=== PATIENT | female | born 1995 | race Caucasian/White ===

== ENCOUNTER 2020-03-27 07:05 | Inpatient (IN) | payer MEDICAID, SELFPAY ==
[2020-03-27] VITALS (38 sets, daily range): BP systolic 0–153; BP diastolic 0–102; PULSE 59–122; RESP 16–20; TEMP 36.3–36.8; O2SAT 97–100; BMI 29.0
--- NOTE | 2020-03-27 07:19 | PM.OBGYHP ---
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 At about 4:00 in the morning she began having contractions and also had some leaking. She went to the bathroom and when she came back there was a puddle on the floor. As result she came in to be evaluated. Here on the floor she was checked was and was found to be nitrazine positive with a white vaginal vault. Her cervix was found to be about centimeter dilated and was thick and high. I contacted the office and her Covid status which was checked earlier this week was found to be negative. Present Details : 4 Para: 3 Review of Systems General: Reports: 10 or more systems reviewed and unremarkable except in HPI and below Const: Reports: fatigue; Denies: fever(s) Eyes: Denies: change in vision Card: Denies: chest pain GI: Reports: heartburn Musc: Reports: back pain William/Lymph: Denies: easy bruising Medications/Allergies Home Medications Medication Instructions Recorded Confirmed Last Taken Type [id number] fumarate-FA tab PO 03/27/20 03/26/20 12:00 History [] ferrous sulfate [Iron (ferrous 325 mg PO DAILY 03/27/20 03/27/20 03/26/20 12:00 History sulfate)] Allergies Allergy/AdvReac Type Severity Reaction Status Date / Time No Known Allergies Allergy Verified 03/27/20 06:58 PFSH 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 PFSH: Family History (Updated 03/27/20 @ 07:26 by Scar Barnett MD) Brother Lung disease Asthma Seizure disorder Social History (Updated 03/27/20 @ 07:25 by Scar Barnett MD) Substance/Drug Use: former Date of last use: Had multiple positive marijuana test during Care TRANG Calculator Estimated Delivery Date Method Current WG Current Estimate 04/05/20 Manual 38w 5d Vitals/I&O/Wt Last Vital Signs Pulse 122 H 03/27/20 07:09 BP 144/90 03/27/20 07:09 Weight last 48 hrs Weight 159 lb Physical Exam Const: COMMON NORMALS: patient oriented x3 and alert HENMT: COMMON NORMALS: moist oral mucous membranes HEAD & SCALP: normal to inspection Chest: COMMONS NORMALS: normal inspection of the chest Resp: COMMON NORMALS: clear to auscultation bilaterally AUSCULTATION: clear to auscultation bilaterally Cardio: COMMON NORMALS: regular rate and regular rhythm RATE: regular rate RHYTHM: regular rhythm GI: INSPECTION: Yes normal to inspection and Yes other (Gravid) : OTHER: Per nurse copious fluid in vaginal vault. nitrazine positive. Extremity: COMMON NORMALS: normal to inspection GENERAL: Yes edema (Trace) Neuro: COMMON NORMALS: patient oriented x3, moves all extremities and no sensory deficits noted SENSORIUM/ORIENTATION: Yes alert Psych: COMMON NORMALS: mental status grossly normal Skin: COMMON NORMALS: no rashes or lesions noted GENERAL SKIN EXAM: no rashes or lesions noted A&P Assessment and plan (1) History of : We are going to proceed with a repeat section at 930. We discussed the risks of bleeding, infection, and damage intra-abdominal organs. Status: Acute (2) 38 weeks gestation of : Status: Acute (3) Spontaneous rupture of membranes: Status: Acute (4) History of marijuana use: We will check a drug screen on the patient. DFS will be consulted. The patient is aware. Status: Acute Attestations Medical Necessity Statement*: I anticipate routine and post care. Coding Level of Care Code Acute Blood And Plasma Laboratory Assistant for Genny Fwd Diagnoses History of Z98.891 38 weeks gestation of Z3A.38 Spontaneous rupture of membranes History of marijuana use Z87.898
[2020-03-27 07:36] LABS: Amphetamines Screen Urine Negative (Negative); Barbiturates Screen Urine Negative (Negative); Benzodiazepines Screen Urine Negative (Negative); Cocaine Screen Urine Negative (Negative); Opiate Screen Urine Negative (Negative); PCP Screen Urine Negative (Negative); THC Screen Urine Negative (Negative)
[2020-03-27 07:39] LABS: Basophils % 0.3 %; Eosinophils # 0.1 10^3/uL (0.0-0.8); Eosinophils % 0.7 %; Hematocrit 28.8 % (37.0-47.0); Hemoglobin 8.8 g/dL (11.5-15.3); Lymphocytes # 1.6 10^3/uL (0.8-4.8); Lymphocytes % 14.6 %; Mean Corpuscular HGB Conc 30.6 g/dL (30.0-36.0); Mean Corpuscular Hemoglobin 24.2 pg (28.0-34.0); Mean Corpuscular Volume 79.1 fL (81-99); Mean Platelet Volume 11.4 fL (7.4-10.4); Monocytes % 9.3 %; Neutrophils # 7.81 10^3/uL (1.8-7.7); Neutrophils % 71.1 %; Nucleated Red Blood Cells % 0.4 %; Platelet Count 149 10^3/cmm (130-400); Red Blood Count 3.64 10^6/uL (4.1-5.3); Red Cell Distribution Width 15.9 % (12.1-15.1)
[2020-03-27] MEDS: lactated ringers 1,000 ML 999 ML IV (07:55)
[2020-03-27] MEDS: famotidine 20 mg/2 mL INJ IVP (07:57)
[2020-03-27] MEDS: lactated ringers 1,000 ML 125 ML IV (08:33)
--- NOTE | 2020-03-27 09:19 | P.ANESASSM_ITS ---
Pre-Anesthetic Assessment Pre-Anesthetic Assessment: Height/Weight: Height 1.57 m Weight 72.121 kg Temp Pulse Resp BP 97.3 F L 84 20 H 136/84 03/27/20 07:00 03/27/20 09:09 03/27/20 07:00 03/27/20 09:09 Preop Diagnosis: previous c section Proposed Procedure: c section Was Beta Ramses taken within 24 hours: N/A Last intake: Intake Last Liquid Date 03/26/20 Last Liquid Time 23:00 Last Solid Date 03/26/20 Last Solid Time 21:00 Social: Social History: No alcohol and No tobacco Exam: Pre-Anes Outpt Exam: alert, oriented x 3, clear to auscultation bilaterally and regular rate & rhythm Airway: Submandibular: WNL Cervical ROM: WNL MP: 2 Dentition: Full History/ROS: No significant history except as noted and No significant complaints Pulmonary: Pulmonary: None reported CV/HEM: CV/HEM: None reported : : None reported Hepatic: Hepatic: None reported GI: GI: GERD Metabolic: Metabolic: None reported Musc/skel: Musc/skel: None reported Neuropsych: Neuropsych: None reported Anesthetic Plan: ASA status: 2 Anesthesia: Regional (specify below) (SAB) Risk of > 500 ml blood loss (7ml/kg in children): Yes, adequate IV access and fluids planned Meds/Allergies Current Medications: Current Medications Generic Name Dose Route Start Last Admin Trade Name Freq PRN Reason Stop Dose Admin Lactated Ringer's 1,000 mls @ 125 m ls/hr 03/27/20 07:15 03/27/20 08:33 Lactated Ringers IV 125 mls/hr .Q8H HARSHAL Administration Lactated Ringer's 1,000 mls @ 999 m ls/hr 03/27/20 07:01 03/27/20 07:55 Lactated Ringers IV 999 mls/hr .Q1H1M PRN Administration Per L&D Rescitati on Protocol PFS Anesthesia PFSH: Family History (Updated 03/27/20 @ 07:27 by Scar Barnett MD) Brother Lung disease Asthma Seizure disorder Social History (Updated 03/27/20 @ 07:25 by Scar Barnett MD) Substance/Drug Use: former Date of last use: Had multiple positive marijuana test during Female Reproductive History: : 4 Data Anesthesia CBC & Chem 7: 03/27/20 07:14 Other Labs: Laboratory Results - last 48 hr 03/27/20 03/27/20 06:30 07:14 WBC 11.0 H RBC 3.64 L Hgb 8.8 L Hct 28.8 L MCV 79.1 L MCH 24.2 L MCHC 30.6 RDW 15.9 H Plt Count 149 MPV 11.4 H Neut % (Auto) 71.1 Lymph % (Auto) 14.6 [place] % (Auto) 9.3 Eos % (Auto) 0.7 Baso % (Auto) 0.3 Neut # (Auto) 7.81 H Lymph # (Auto) 1.6 [place] # (Auto) 1.0 H Eos # (Auto) 0.1 Baso # (Auto) 0.0 Nucleated RBC % (auto) 0.4 Nucleated RBCs # 0.0 Urine Opiates Screen Negative Ur Barbiturates Screen Negative Ur Phencyclidine Scrn Negative Ur Amphetamines Screen Negative U Benzodiazepines Scrn Negative Urine Cocaine Screen Negative U Marijuana (THC) Screen Negative Cardiac Studies: No Data to Display
--- NOTE | 2020-03-27 11:00 | P.OP_ITS ---
Operative Report Date of procedure: March 27, 2020 Pre-op Diagnosis: previous c section, 38 weeks gestation, spontaneous rupture membranes Post-op diagnosis: same Procedure Done: Repeat lower transverse section Specimens removed/disposition: 1. Female infant with a weight of 6 pounds 13 ounces and and Apgars of 9, 10 Pathology: none sent Surgeon: Scar Barnett Anesthesia: Other (Spinal) Estimated blood loss (mL): 600 Condition: stable Disposition: floor (OB) Brief History: See history and physical Procedure: The patient was brought back to the operating room where she was prepped and draped in usual sterile fashion. Anesthesia was found to be adequate. A lower transverse skin incision was then made with a #10 blade. I then dissected down to the underlying subcutaneous tissue until arriving at the prerectal fascia. The fascia was then nicked with the scalpel bilaterally. The fascial incisions were then carried laterally with Butt scissors. Attention was then turned to the superior aspect of the incision which was grasped with kochers and tented up away from the underlying rectus abdominis muscles. The muscles were then dissected away from the fascia manually, and later with Butt scissors. Attention was then turned to the inferior aspect of the incision, and the fascia was dissected away from the underlying muscle in similar fashion. The rectus abdominis muscles were then spread manually. The peritoneum was entered manually. Excellent visualization of the uterus was noted. A lower transverse uterine incision was then made with a #10 blade. Upon arriving at the intrauterine cavity, the uterine incision was then extended manually. The was noted to be in vertex position. The baby was delivered without difficulty. After delivery of the head, the mouth and nose were suctioned at the site of the incision. There was no meconium. There was no nuchal cord. The remainder of the body was then delivered and placed on the abdomen. The cord was cut and clamped. The baby was then handed to the waiting nurse. The placenta was removed intact. The uterus was externalized. The intrauterine cavity was cleansed of any remaining debris. The uterine incision was reapproximated in 2 layers. the first layer was performed with 0 Vicryl in a running locked stitch. The second layer was an im bricating stitch also using 0 Vicryl. A single [id number] stitch was used to stop any remaining bleeders. The uterus was replaced into the abdomen. The peritoneum was then irrigated with warm saline. I reexamined the uterine incision and found it to be hemostatic. The rectus abdominis muscles were then reapproximated using 0 Vicryl in a running stitch. The fascia was then reapproximated using 0 Vicryl in running stitch. The skin was reapproximated using 4-0 Vicryl in a running subcutaneous stitch. Benzoin and Steri-Strips were placed. A sterile dressing was placed. All counts were correct x2. Both the mother and baby were in stable condition. Associated Problem List Diagnoses (1) History of : (2) 38 weeks gestation of : (3) Spontaneous rupture of membranes:
[2020-03-27] MEDS: dextrose 5%-lactated ringers 1,000 ML 125 ML IV ×2 (13:18→21:50)
[2020-03-27] MEDS: ketorolac 30 mg/mL INJ IVP (18:38)
[2020-03-27] MEDS: docusate sodium 100 mg Capsule PO (18:38)
[2020-03-27 19:57] LABS: Hematocrit 24.1 % (37.0-47.0); Hemoglobin 7.5 g/dL (11.5-15.3); Mean Corpuscular HGB Conc 31.1 g/dL (30.0-36.0); Mean Corpuscular Hemoglobin 24.5 pg (28.0-34.0); Mean Corpuscular Volume 78.8 fL (81-99); Mean Platelet Volume 11.7 fL (7.4-10.4); Platelet Count 143 10^3/cmm (130-400); Red Blood Count 3.06 10^6/uL (4.1-5.3); White Blood Count 16.5 10^3/uL (4.0-10.0)
[2020-03-28 01:20] VITALS: BP 120/77; PULSE 84; RESP 16; TEMP 36.8; O2SAT 99
[2020-03-28] MEDS: ketorolac 30 mg/mL INJ IVP (01:20)
[2020-03-28 05:15] VITALS: BP 131/87; PULSE 78; RESP 16; TEMP 36.6; O2SAT 100
[2020-03-28 05:44] LABS: Hematocrit 22.2 % (37.0-47.0); Hemoglobin 6.8 g/dL (11.5-15.3); Mean Corpuscular HGB Conc 30.6 g/dL (30.0-36.0); Mean Corpuscular Hemoglobin 24.7 pg (28.0-34.0); Mean Corpuscular Volume 80.7 fL (81-99); Mean Platelet Volume 11.9 fL (7.4-10.4); Platelet Count 122 10^3/cmm (130-400); Red Blood Count 2.75 10^6/uL (4.1-5.3); Red Cell Distribution Width 15.9 % (12.1-15.1); White Blood Count 12.6 10^3/uL (4.0-10.0)
[2020-03-28 06:54] LABS: Absolute Segmented Neutrophil 9.8 10/cmm (1.6-7.1); Anisocytosis 1+; Band Neutrophils Absolute 0.1 10^3/cmm (0.0-1.2); Blastocytes 0 % (0-0); Eosinophils 0 %; Lymphocytes 18 %; Monocytes Absolute 0.4 10^3/cmm (0.1-0.6); Platelet Estimate Decreased (Normal); Segmented Neutrophils 78 %; Total Cells Counted 100 (0-100)
--- NOTE | 2020-03-28 07:45 | PM.OBGYDC ---
Discharge Providers MANAGER AREA Date of Admission: 03/27/20 07:05 Date of Discharge: 03/28/20 Attending Provider at Admission: Scar Barnett MD Attending Provider at Discharge: Scar Barnett MD Diagnoses at Discharge Discharge Diagnosis (1) History of : Status: Acute (2) 38 weeks gestation of : Status: Acute (3) Spontaneous rupture of membranes: Status: Acute Reason for Visit Reason for Visit: possible ROM and contractions Hospital Course Hospital Course: The patient arrived to the hospital with spontaneous rupture of membranes. Because of her history of a previous , we proceeded with a repeat section. The was unremarkable. Her course was also unremarkable. Her bleeding was a little better than normal. Her pain is been well controlled. Her urine output has been excellent. Her hemoglobin when she came to the hospital was 8.8. It is dropped to 6.8. She has passed gas and tolerated regular diet. There have been no concerns. Information Peripartum Data: Delivery Method: Section Physical Exam Narrative: EXAM NARRATIVE: She is in no acute distress Lungs are clear auscultation bilaterally Her heart has a regular rate and rhythm Her fundus is below the umbilicus and firm Her dressing is clean, dry and intact Her extremities have trace edema Urinary Catheter Management^: Dempsey: Cath Placed During This Visit: yes, but has since been removed by the nurse Reason for Continuing Indwelling Catheter: Decision to DC Catheter Urinary Catheter Date of Insertion: 03/27/20 Urinary Catheter Time of Insertion: 10:05 Date Urinary Catheter Removed: 03/28/20 Time Urinary Catheter Discontinued: 05:00 Discharge Data Data Completed and Pending: Labs from last 24 hours 03/28/20 03/27/20 05:15 19:43 WBC 12.6 H 16.5 H RBC 2.75 L 3.06 L Hgb 6.8 L 7.5 L Hct 22.2 L 24.1 L MCV 80.7 L 78.8 L MCH 24.7 L 24.5 L MCHC 30.6 31.1 RDW 15.9 H 16.0 H Plt Count 122 L 143 MPV 11.9 H 11.7 H Total Counted 100 Atypical Lymphs % 0.0 Absolute Neutrophi ls 10.0 H Segmented Neutroph ils 78 Abs Segm Neuts (Ma n) 9.8 H Band Neutrophils 1.0 Abs Band Neuts (Ma n) 0.1 Lymphocytes (Manua l) 18 Monocytes (Manual) 3.0 Absolute Monocytes 0.4 Eosinophils (Manua l) 0 Absolute Eosinophi ls 0.0 Basophils (Manual) 0.0 Absolute Basophils 0.0 Metamyelocytes 0.0 Myelocytes 0.0 Promyelocytes 0.0 Nucleated RBCs 1.0 Blast Cells 0 Platelet Estimate Decreased L Anisocytosis 1+ H Vitals: Last Vital Signs Temp 97.8 F 03/28/20 05:15 Pulse 78 03/28/20 05:15 Resp 16 03/28/20 05:15 BP 131/87 03/28/20 05:15 Pulse Ox 100 03/28/20 05:15 Discharge Plan Discharge Patient Disposition: Home Condition: Stable Prescriptions: New ibuprofen 800 mg Tablet 800 mg PO TID Qty: 45 RF: 0 hydrocodone-acetaminophen 5-325 mg Tablet 1 tab PO Q6H PRN (Reason: Moderate To Severe Pain) Qty: 20 RF: 0 ferrous sulfate 325 mg (65 mg iron) Tablet,Delayed Release (Dr/Ec) 325 mg PO BID Qty: 60 RF: 3 Continued 28-800 mg-mcg Tablet PO RF: 0 Discontinued ferrous sulfate [Iron (ferrous sulfate)] 325 mg (65 mg iron) Tablet 325 mg PO DAILY RF: 0 Discharge Orders: Discharge Order (Routine); Ordered 03/28/20 Ordered By: Scar Barnett Referrals: Scar Barnett MD [Family Provider] - 6 Weeks ( she already has an appointment next week she will keep.) Discharge Diet: Usual diet Discharge Activity: Limit activity as instructed Patient Instructions: Bleeding (DC), OB - [place], OB Discharge Report, OB Anesthesia Instructions, OB Food/Drug Interaction Guide, OB Home Care, OB Proud Parent Packet Discharge Attestations MANAGER AREA Time Spent in Discharge Care*: less than 30 min Coding Level of Care Code Acute Brand Development Manager for Chg Fwd Diagnoses History of Z98.891 38 weeks gestation of Z3A.38 Spontaneous rupture of membranes
[2020-03-28] MEDS: docusate sodium 100 mg Capsule PO (08:44)
[2020-03-28] MEDS: ferrous sulfate EC 325 mg Tablet PO (08:44)
[2020-03-28] MEDS: prenatal vitamin Capsule 1 CAP PO (08:44)
[2020-03-28] MEDS: ibuprofen 800 mg tablet PO (09:30)
--- NOTE | 2020-03-28 09:57 | P.ANESPOST_ITS ---
Inpatient post-anesthesia follow up: Airway intact: Yes Vital signs: Temperature 97.8 F Pulse Rate 78 Respiratory Rate 16 Blood Pressure 131/87 Pulse Oximetry 100 Oxygen Delivery Me thod Room Air Oxygen Flow Rate Fraction of Inspir ed Oxygen Hydration adequate: Yes Pain level: 2 Mental status: Baseline Additio nal Comments: No signs of infection at neuraxial site, no numbness/weakness in lower extremities, no headaches, urinating without moreau
[2020-03-28 10:28] VITALS: BP 121/81; PULSE 87; RESP 16; TEMP 36.8
[2020-03-28] MEDS: simethicone 80 mg Chew PO (12:42)
[2020-03-28] MEDS: HYDROcodone-acetaminophen 5-325 mg Tablet PO (12:42)
[2020-03-28 13:43] VITALS: BP 123/80; PULSE 99; RESP 18; TEMP 36.8
== END 2020-03-28 14:12 | disposition home or self-care (01) | DRG 787 ==
LOC: OBGYN 08:21 → OPOB 10:08 → OBGYN 10:08
PROVIDERS: Admitting Provider Family Medicine; Family Provider Family Medicine; Visit Provider Family Medicine
PROC: 10D00Z1 Extraction of Products of Conception, Low, Open Approach (ICD-10-PCS; CPT 59514; principal; 2020-03-27 10:00)
DX: O34.211 Maternal care for low transverse scar from previous cesarean delivery (principal); O99.324 Drug use complicating childbirth; Z3A.38 38 weeks gestation of pregnancy; Z37.0 Single live birth; F12.90 Cannabis use, unspecified, uncomplicated
CPT/HCPCS: 12345; 36415; 51702; 59025; 59409; 80306; 83986; 85007; 85025; 85027; 90471; 90686; 96375; 99211; J0690; J1885; J2274; J2405; J3010; J3490

== ENCOUNTER 2022-09-28 13:42 | Emergency (ER) | payer MEDICAID, SELFPAY ==
[2022-09-28 13:49] VITALS: BP 107/78; PULSE 72; RESP 16; TEMP 36.8; O2SAT 99; BMI 22.6
[2022-09-28 14:30] LABS: Basophils % 0.1 %; Eosinophils % 0.1 %; Hematocrit 47.7 % (37.0-47.0); Hemoglobin 15.9 g/dL (11.5-15.3); Lymphocytes # 1.7 10^3/uL (0.8-4.8); Mean Corpuscular HGB Conc 33.3 g/dL (30.0-36.0); Mean Platelet Volume 10.4 fL (7.4-10.4); Monocytes # 0.7 10^3/uL (0.2-0.9); Monocytes % 5.6 %; Neutrophils # 9.56 10^3/uL (1.8-7.7); Neutrophils % 79.9 %; Nucleated Red Blood Cells % 0 %; Platelet Count 272 10^3/cmm (130-400); Red Cell Distribution Width 12.3 % (12.1-15.1)
[2022-09-28 14:49] LABS: HCG, Serum Qual Negative (Negative)
[2022-09-28 14:54] LABS: Alanine Aminotransferase 13 U/L (0-33); Albumin Level 5.4 g/dL (3.5-5.2); Alkaline Phosphatase 80 U/L (35-105); Anion Gap 19.9 (5-19); Aspartate Amino Transferase 15 U/L (0-32); Blood Urea Nitrogen 26 mg/dL (6-20); Calcium 10.4 mg/dL (8.5-10.5); Carbon Dioxide 26 mmol/L (22-29); Chloride 97 mmol/L (98-107); Globulin 3.4 g/dL (1.3-4.6); Glucose 120 mg/dL (65-115); Lipase 26 U/L (13-60); Osmolality Calculated 294 mOsm/kg (285-295); Potassium 3.9 mmol/L (3.5-5.1); Sodium 139 mmol/L (136-145); Total Bilirubin 0.4 mg/dL (0.15-1.2); Total Protein 8.8 g/dL (6.6-8.7)
== END 2022-09-28 15:09 | disposition left against medical advice (07) ==
PROVIDERS: Emergency Medicine; Emergency Provider Family Medicine; PCP Nurse Practitioner
DX: Z53.21 Procedure and treatment not carried out due to patient leaving prior to being seen by health care provider (principal)
CPT/HCPCS: 36415; 80053; 83690; 84703; 85025; 99283

== ENCOUNTER 2022-09-29 11:07 | Emergency (ER) | payer MEDICAID, SELFPAY ==
[2022-09-29] VITALS (28 sets, daily range): BP systolic 122; BP diastolic 85; PULSE 56; TEMP 36.5; O2SAT 96–100; BMI 22.6
--- NOTE | 2022-09-29 | CTR_ITS ---
[facility] Final Radiology Report Call: [phone] assistance Online chat: [email or web address] Name: ADALBERTO MCGOWAN Age: 26Years F Date: 09/29/2022 SSN: -- : [id number] Study: CT ABDOMEN/PELVIS W Requesting Physician: JACKIE PAPPAS Images: 194 Add?l Studies: Provided Clinical History: abdominal pain Page 1 of 2 PROCEDURE INFORMATION: Exam: CT Abdomen And Pelvis With Contrast Exam date and time: 09/29/2022 2:27 PM Age: 26 years old Clinical indication: Abdominal pain; Generalized TECHNIQUE: Imaging protocol: Computed tomography of the abdomen and pelvis with contrast. Radiation optimization: All CT scans at this facility use at least one of these dose optimization techniques: automated exposure control; mA and/or kV adjustment per patient size (includes targeted exams where dose is matched to clinical indication); or iterative reconstruction. Contrast material: OMNI 350; Contrast volume: 100 ml; Contrast route: INTRAVENOUS (IV); REPORTING DATA: Count of CT and Cardiac NM exams in prior 12 months: This patient has received 0 known CTs and 0 known cardiac nuclear medicine studies in the 12 months prior to the current study. COMPARISON: US OB >= 14 weeks fetus [id number] 11/12/2019 1:17 PM RADIATION DOSE METRICS: Total DLP (mGy-cm): 332 FINDINGS: Lungs: Lung bases are clear. Liver: The liver is normal. Gallbladder and bile ducts: The gallbladder is normal. There is no biliary dilation. Pancreas: The pancreas is unremarkable. Spleen: The spleen is moderately enlarged. Adrenal glands: The adrenal glands are unremarkable Kidneys and ureters: The kidneys are unremarkable. No hydronephrosis or stones. No ureteral dilation. Stomach and bowel: The stomach is unremarkable. The small bowel is nondilated. Colon is diffusely decompressed. Appendix: The appendix is normal. Intraperitoneal space: There is no free air or significant intraperitoneal free fluid. Vasculature: The aorta is unremarkable. There is no aneurysm. The portal, splenic and superior mesenteric veins are patent. Lymph nodes: There is no lymphadenopathy in the retroperitoneum, mesentery, pelvis or inguinal regions. Urinary bladder: The urinary bladder is unremarkable. Reproductive: The uterus is unremarkable. There is no adnexal mass or large cyst. Bones/joints: Bones are unremarkable. Soft tissues: The abdominal wall is intact. IMPRESSION: No acute findings. Thank you for allowing us to participate in the care of your patient. Dictated and Authenticated by: Tam Latham MD 09/29/2022 2:49 PM Central Time ([place] & [place]) [facility]
--- NOTE | 2022-09-29 12:51 | W.ED.NAVMDI ---
HPI - Nausea/Vomiting/Diarrhea General: Chief complaint: Nausea/Vomiting/Diarrhea Stated complaint: N/V x5 days Time Seen by Provider: 09/29/22 12:38 History of Present Illness: 26-year-old female presents emergency department chief complaint of nausea vomiting diarrhea and generalized abdominal pain has been ongoing for last 5 days. Patient reports before her sickness she ate [employer] reports the food tasted well patient reports her sick kids were sick with the same symptoms will last 1 day however her symptoms have been persisted patient does not recall any recent fevers or chills reports no other history of any other abdominal surgeries besides multiple C-sections. Patient reports generalized abdominal cramping pain. Associated nausea: Yes Associated symtoms: Reports fatigue, malaise and nausea; Denies anxiety, change in vision, chest pain, headache(s) or palpitations Review of Systems General: Reports: 10 or more systems reviewed and unremarkable except in HPI and below Const: Reports: fatigue and malaise; Denies: fever(s) or chills Eyes: Denies: change in vision or blurry vision Card: Denies: chest pain or palpitations Resp: Denies: dyspnea or productive cough GI: Reports: abdominal pain, nausea, vomiting and diarrhea : Denies: flank pain Musc: Denies: extremity pain or extremity swelling Skin/Breast: Denies: rash or pruritus Neuro: Denies: headache(s) Psych: Denies: anxiety or depression William/Lymph: Denies: easy bleeding All/Imm: Denies: urticaria, throat swelling or facial swelling PFSH ED PFSH: Family History Brother Lung disease Asthma Seizure disorder Social History Substance/Drug Use: former Date of last use: Had multiple positive marijuana test during Physical Exam Narrative: EXAM NARRATIVE: Patient appears to have a flat affect appears to be moderately dehydrated on exam Const: COMMON NORMALS: no acute distress, patient oriented x3 and healthy appearing HENMT: COMMON NORMALS: normocephalic and atraumatic HEAD & SCALP: normocephalic and atraumatic Eye: COMMON NORMALS: Equal, round and reactive pupils present and EOMs intact bilaterally PUPIL: Yes Equal, round and reactive pupils present Neck/C-Spine: COMMON NORMALS: full ROM, supple and no JVD Lymph: LYMPHATIC: no lymphadenopathy noted Chest: COMMONS NORMALS: normal inspection of the chest and normal palpation of entire chest wall Resp: COMMON NORMALS: normal respiratory effort, No retractions and clear to auscultation bilaterally EFFORT & INSPECTION: Yes able to speak in complete sentences and Yes symmetric chest movement AUSCULTATION: clear to auscultation bilaterally Cardio: COMMON NORMALS: no JVD, regular rate and regular rhythm RATE: regular rate RHYTHM: regular rhythm GI: OTHER: Generalized abdominal discomfort noted with tenderness appreciated mild guarding noted over the suprapubic region otherwise soft nontender hypoactive bowel sounds noted x4 quadrants : COMMON NORMALS: Yes no CVA tenderness BLADDER/KIDNEY EXAM: Yes no CVA tenderness Back/Pelvis: COMMON NORMALS: no CVA tenderness Extremity: COMMON NORMALS: normal to inspection and full ROM Neuro: COMMON NORMALS: patient oriented x3, CN's II-XII intact bilaterally, moves all extremities and no focal motor deficits Psych: COMMON NORMALS: mental status grossly normal, Normal thought process present, cooperative and normal affect THOUGHT PROCESS: Normal thought process present Skin: COMMON NORMALS: no rashes or lesions noted GENERAL SKIN EXAM: no rashes or lesions noted Course Vital Signs: Vital signs: Vital Signs Temperature 97.7 F 09/29/22 12:03 Pulse Rate 56 L 09/29/22 12:03 Blood Pressure 122/85 09/29/22 12:03 Pulse Oximetry 100 09/29/22 12:03 Oxygen Delivery Me thod Room Air 09/29/22 12:03 MDM - Nausea/Vomiting/Diarrhea Medical Decision Making Due to the patient's symptoms and condition IV established basic lab work imaging will be obtained IV fluids provided for hydration antiemetics and stomach medication will be provided we will continue to follow Discharge Plan Discharge Condition: Stable Prescriptions: No Action amoxicillin 875 mg tablet 875 mg PO BID Qty: 20 0RF ibuprofen 800 mg tablet 800 mg PO TID PRN (Reason: pain) Qty: 42 0RF 28-800 mg-mcg Tablet PO ibuprofen 800 mg Tablet 800 mg PO TID Qty: 45 0RF hydrocodone-acetaminophen 5-325 mg Tablet 1 tab PO Q6H PRN (Reason: Moderate To Severe Pain) Qty: 20 0RF ferrous sulfate 325 mg (65 mg iron) Tablet,Delayed Release (Dr/Ec) 325 mg PO BID Qty: 60 3RF Referrals: Tyson Henry, COOKIE BREAKER-C [Primary Care Provider] - Coding Level of Care Code ED Supervisor Personnel Clerks for Genny Whiting
[2022-09-29 13:24] LABS: Basophils % 0.4 %; Eosinophils % 0.2 %; Hematocrit 44.7 % (37.0-47.0); Hemoglobin 15.3 g/dL (11.5-15.3); Lymphocytes # 1.6 10^3/uL (0.8-4.8); Lymphocytes % 18.9 %; Mean Corpuscular HGB Conc 34.2 g/dL (30.0-36.0); Mean Corpuscular Hemoglobin 30.9 pg (28.0-34.0); Mean Corpuscular Volume 90.3 fl (81-99); Mean Platelet Volume 10.4 fL (7.4-10.4); Monocytes # 0.5 10^3/uL (0.2-0.9); Monocytes % 6.1 %; Neutrophils # 6.27 10^3/uL (1.8-7.7); Neutrophils % 73.7 %; Nucleated Red Blood Cells % 0 %; Platelet Count 237 10^3/cmm (130-400); Red Blood Count 4.95 10^6/uL (4.1-5.3); Red Cell Distribution Width 12.3 % (12.1-15.1); White Blood Count 8.5 10^3/uL (4.0-10.0)
[2022-09-29 13:49] LABS: Alanine Aminotransferase 15 U/L (0-33); Albumin Level 5.2 g/dL (3.5-5.2); Alkaline Phosphatase 72 U/L (35-105); Anion Gap 16.8 (5-19); Aspartate Amino Transferase 19 U/L (0-32); Blood Urea Nitrogen 25 mg/dL (6-20); Carbon Dioxide 28 mmol/L (22-29); Chloride 98 mmol/L (98-107); Glucose 91 mg/dL (65-115); Lipase 20 U/L (13-60); Osmolality Calculated 292 mOsm/kg (285-295); Potassium 3.8 mmol/L (3.5-5.1); Sodium 139 mmol/L (136-145); Total Bilirubin 0.7 mg/dL (0.15-1.2); Total Protein 8.2 g/dL (6.6-8.7)
[2022-09-29] MEDS: pantoprazole 40 mg SDV 80 MG IVP (14:19)
[2022-09-29] MEDS: sodium chloride 0.9% 1,000 ML 999 ML IV ×2 (14:20→16:02)
[2022-09-29] MEDS: ondansetron 2 mg/ML SDV 2 mL 4 MG IVP ×3 (14:20→19:09)
[2022-09-29] MEDS: dicyclomine 20 mg Tablet PO (14:21)
[2022-09-29] MEDS: iohexol 350 mg/mL 500 mL Btl (per mL) IV (14:24)
[2022-09-29 18:22] LABS: Urine Appearance Clear (CLEAR); Urine Color Yellow (Yellow)
[2022-09-29 18:23] LABS: Add Urine Microscopic? YES; Bilirubin Urine 1+ (Negative); Blood Urine 3+ (Negative); Glucose Urine UA Norm (Normal); Ketones Urine 2+ (Negative); Leukocyte Esterase Urine Negative (Negative); Mucus Urine 2+ /hpf; Nitrate Urine Negative (Negative); Protein Urine 1+ (Negative); Specific Gravity, Urine 1.015 (1.005-1.030); Squamous Epithelial Cell Urine 0-4 /hpf (0-5); Urobilinogen Urine 1 mg/dL (Negative); WBC Urine 0-4 /hpf (0-5); pH Urine 6.5 (5-7)
[2022-09-29 18:24] LABS: Add Urine Culture? No
== END 2022-09-29 19:10 | disposition home or self-care (01) ==
PROVIDERS: Emergency Provider Emergency Medicine; PCP Nurse Practitioner
DX: R11.2 Nausea with vomiting, unspecified (principal); R19.7 Diarrhea, unspecified
CPT/HCPCS: 36415; 74177; 80053; 81001; 83690; 85025; 86140; 96361; 96374; 96375; 96376; 99285; C9113; J2405; J7030; Q9967

== ENCOUNTER → 2023-01-27 09:04 | Outpatient (BNVA) | payer MEDICAID, SELFPAY | PROVIDERS: PCP Nurse Practitioner; Visit Provider Nurse Practitioner Family | DX: M25.531 Pain in right wrist (principal) | CPT/HCPCS: 73110 ==

== ENCOUNTER → 2023-04-15 10:35 | Outpatient (BNVA) | payer MEDICAID, SELFPAY | PROVIDERS: PCP Nurse Practitioner; Visit Provider Nurse Practitioner | DX: E55.9 Vitamin D deficiency, unspecified (principal); R59.1 Generalized enlarged lymph nodes; K02.9 Dental caries, unspecified | CPT/HCPCS: 80053; 82306; 82607; 84443; 85025; 85651; 86140 ==

== ENCOUNTER 2023-05-04 14:33 | Outpatient (CLI) | payer MEDICAID, SELFPAY ==
--- NOTE | 2023-05-04 15:30 | CT_ITS ---
WS: [id number] CT NECK WITH CONTRAST HISTORY: R59.1 - Generalized enlarged lymph nodes TECHNIQUE: Contiguous 2 mm axial images are performed through the neck with intravenous contrast. Sag ittal and coronal reformats are also submitted. All CT scans at [facility] use at least one o f these dose optimization techniques: automated exposure control; mA and/or kV adjustment per patient size (includes targeted exams where dose is matched to clinical indication); or iterative reconstruc tion. CONTRAST: CONTRAST: Omnipaque 350; 100 mL IV. DLP: 119.93 mGy.cm COMPARISON: None available. Nasopharynx, oropharynx, hypopharynx and larynx are unremarkable. No soft tissue masses or abnormal e nhancement. Torus tubarius and fossa of Rosenmuller and parapharyngeal fat are normal. Numerous slightly enlarged lymph nodes at several levels throughout the neck. There are enlarged hype rvascular lymph nodes at level 1B measuring up to 1.6 cm on the RIGHT. At level 2A and 2B there are e nlarged lymph nodes which maintain their normal shape. Lymph nodes are measuring approximately 12 mm. Level 2B and 3 lymph nodes are small but numerous. Largest level 2B lymph node is 13 mm on the RIGHT . Small lymph nodes noted in the posterior occipital region are stable. No supraclavicular adenopathy . Submandibular glands are bilaterally enlarged. Parotid glands are normal. No osseous abnormalities. Dental caries noted bilaterally greatest involving the RIGHT mandible. Visualized paranasal sinuses and mastoid air cells are normal. Lung apices are clear. IMPRESSION: 1. Mildly enlarged bilateral cervical chain lymph nodes. Lymph nodes are predominantly at level 1B, 2 A and 2B and smaller lymph nodes at level 3. These should be further evaluated for both inflammatory/ infectious or neoplastic changes. Lymphoma needs to be excluded. PET/CT may be of benefit. 2. Marked dental caries RIGHT mandible.
[2023-05-04] MEDS: iohexol 350 mg/mL 500 mL Btl (per mL) IV (15:56)
== END 2023-05-04 14:34 | disposition home or self-care (01) ==
LOC: RAD 14:33
PROVIDERS: PCP Nurse Practitioner; Visit Provider Nurse Practitioner
DX: R59.1 Generalized enlarged lymph nodes (principal)
CPT/HCPCS: 70491; Q9967

== ENCOUNTER 2023-09-11 20:30 | Emergency (ER) | payer MEDICAID, SELFPAY ==
[2023-09-11 20:32] VITALS: BP 137/98; PULSE 133; RESP 18; TEMP 36.8; O2SAT 99
--- NOTE | 2023-09-11 20:40 | ED_ITS ---
HPI - Animal Bite General: Chief Complaint: Animal Bite Stated Complaint: DOG BITE Time Seen by Provider: 09/11/23 20:36 History of Present Illness: 27-year-old female who [facility] after she was attacked by a large dog. She says it knocked her down and she has a small laceration on her right forehead she thinks she got that laceration from hitting the ground. She has a puncture wound on her right medial elbow. There is some subcutaneous tissue coming from this and there is a second wound just above that. She also hit her tooth and broke off part of the tooth. No loss of consciousness. No altered mental status. Review of Systems Narrative: Constitutional symptoms: Negative except as documented in HPI. Skin symptoms: Negative except as documented in HPI. Eye symptoms: Negative except as documented in HPI. ENMT symptoms: Negative except as documented in HPI. Respiratory symptoms: Negative except as documented in HPI. Cardiovascular symptoms: Negative except as documented in HPI. Gastrointestinal symptoms: Negative except as documented in HPI. Genitourinary symptoms: Negative except as documented in HPI. Musculoskeletal symptoms: Negative except as documented in HPI. Neurologic symptoms: Negative except as documented in HPI. Psychiatric symptoms: Negative except as documented in HPI. Endocrine symptoms: Negative except as documented in HPI. FORMERLY [facility] ED PFSH: Medical History History of marijuana use Surgical History History of tonsillectomy History of Family History Brother Lung disease Asthma Seizure disorder Social History Smoking and tobacco/nicotine status: current every day tobacco/nicotine user Second hand smoke exposure: No Alcohol intake: never Substance/Drug Use: former Date of last use: Had multiple positive marijuana test during Adopted: No Caregiver/support person: No Lives independently: Yes Household members: spouse Housing: House Marital status: Number of children: 4 Highest education level completed: 11th Grade service: No Current occupational status: employed Physical Exam Narrative: EXAM NARRATIVE: General: Alert, no acute distress. Skin: warm and dry. Superficial laceration of the right forehead horizontally. There are 2 fairly significant puncture wounds on right arm just distal to the elbow with some subcutaneous tissue protruding. Patient is neurovascularly intact Head: Normocephalic Neck: Trachea midline Eye: Extraocular movements are intact. Ears, nose, mouth and throat: Oral mucosa moist Respiratory: Respirations are non-labored Musculoskeletal: Normal ROM Neurological: Alert and oriented to person, place, time, and situation, No focal neurological deficit observed. Psychiatric: Cooperative, appropriate mood & affect. Course Vital Signs: Vital signs: Vital Signs Temperature 98.3 F 09/11/23 20:32 Pulse Rate 133 H 09/11/23 20:32 Respiratory Rate 26 H 09/11/23 21:04 Blood Pressure 137/98 09/11/23 20:32 Pulse Oximetry 100 09/11/23 21:04 Oxygen Delivery Me thod Room Air 09/11/23 20:32 MDM - Animal Bite Medical Decision Making Patient has a dog bite. She has 2 large puncture wounds these will require loose closure and she will require antibiotic therapy. We are pending rabies vaccination status of the animal. Laceration repair procedure: Time: 9:30 PM Confirmed patient, procedure, side, and site. Time out performed prior to procedure. Verbal consent was obtained by patient and/or responsible libertarian. Indication: Laceration Location: Right arm Length: There are 4 puncture/lacerations on the dorsal arm and 1 on the elbow Palmar side/crease of elbow Laceration #1: 0.5 cm laceration. I did not apply any sutures to this laceration Laceration #2: 2 cm laceration. 3 simple interrupted sutures were applied. Laceration #3: 1 cm laceration 2 sutures were applied. Laceration #4. 1 cm laceration 1 suture was applied. Elbow/posterior Laceration #5: 3 cm laceration. 3 sutures were applied loosely. Simple interrupted technique. cm Description: Anesthesia: 20 mL 2% lidocaine out epinephrine Area prepared by sterile field with Betadine. # 7, 3-0 sutures were utilized, simple, interrupted technique. Post procedure examination: Circulation, motor, sensory intact. Patient tolerated the procedure well. No complications, bleeding. Total time: 20 min. Pt advised to keep the area clean and dry, wash twice per day with antibacterial soap and water. Return to the ED or PCP in 7-10 days for suture removal. No radiology studies performed this visit Other Data Assessment and plan: Dog bite Facial lac Arm lac -Loose closure of open wounds on arm. -Tetanus vaccine and rabies vaccine given. -Discussed rabies immunoglobulin and the patient declines. The dog is well- known to them and had no rabies symptoms and was kept indoors or unchanged at all times. Apparently the ring barker operator had shot the dog and is no longer viable for testing. - Discharged home - Discussed plan with patient. Answered any questions. - Evaluation and treatment of this problem were appropriate in the emergency setting. Discharge Plan Discharge Patient Disposition: Home Clinical Impression: Dog bite, Arm laceration Condition: Stable Prescriptions: New hydrocodone-acetaminophen 5-325 mg tablet 1 tab PO Q6H PRN (Reason: pain) Qty: 20 0RF Miralax 17 gram/dose powder 17 g PO DAILY Qty: 510 0RF Rx Instructions: Take 1 scoop daily while taking pain medications. amoxicillin-pot clavulanate 875-125 mg tablet 1 tab PO BID 10 Days Qty: 20 0RF No Action chlorhexidine gluconate [Peridex] 0.12 % mouthwash 15 ml buccal BID Qty: 473 2RF cetirizine [Wal-Zyr (cetirizine)] 10 mg tablet 10 mg PO DAILY Qty: 30 5RF famotidine [Pepcid] 20 mg tablet 20 mg PO DAILY Qty: 30 5RF cyclobenzaprine 10 mg tablet 10 mg PO .at bedtime Qty: 30 5RF duloxetine [Cymbalta] 20 mg capsule,delayed release(DR/EC) 20 mg PO BID Qty: 60 0RF albuterol sulfate [Ventolin HFA] 90 mcg/actuation HFA aerosol inhaler 2 puff inhalation Q6H PRN (Reason: shortness of breath or wheezing) Qty: 8.5 0RF Discharge Orders: Discharge ED (Routine); Ordered 09/11/23 Ordered By: Sammie Macias Referrals: Tyson Henry, STOCK DIGGER-C [Primary Care Provider] - (You have been screened and evaluated and felt safe for discharge. Health conditions do change or evolve sometimes and as such it is important that you follow up with your Primary Doctor to be re checked, 3-5 days is a general good time frame for follow up. You are always welcome to return to the ED for re assessment if your symptoms are worsening or you have new concerns) Discharge Diet: Advance as tolerated Discharge Activity: Resume usual activity Patient Instructions: Opioid Safety, Pain Management Activity Restrictions/Additional Instructions: Suture removal in 7 days with your primary or at the emergency room. Wash with soap and water twice daily/shower as normal. No submersion. No baths. No ponds. No lakes. Coding Level of Care Code ED Shop Director for Genny Whiting
[2023-09-11] MEDS: amoxicillin-clav 875-125 mg Tablet 1 TAB PO (21:03)
[2023-09-11 21:04] VITALS: RESP 26; O2SAT 100
[2023-09-11] MEDS: HYDROmorphone 1 mg/mL INJ 1 mL IVP (21:04)
[2023-09-11] MEDS: ondansetron 2 mg/ML SDV 2 mL 4 MG IVP (21:04)
[2023-09-11 22:10] VITALS: BP 128/97; PULSE 89; RESP 18; O2SAT 99
[2023-09-11] MEDS: rabies vaccine 2.5 unit SDV IM (22:17)
== END 2023-09-11 22:25 | disposition home or self-care (01) ==
PROVIDERS: Emergency Provider Emergency Medicine; PCP Nurse Practitioner
DX: S51.851A Open bite of right forearm, initial encounter (principal); S01.81XA Laceration without foreign body of other part of head, initial encounter; W54.0XXA Bitten by dog, initial encounter; Z72.0 Tobacco use; Z23 Encounter for immunization; Z20.3 Contact with and (suspected) exposure to rabies; Z29.14 Encounter for prophylactic rabies immune globulin
CPT/HCPCS: 12002; 90471; 90675; 96374; 96375; 99284; J1170; J2405

== ENCOUNTER 2023-09-14 19:31 | Emergency (ER) | payer MEDICAID, SELFPAY ==
[2023-09-14 19:43] VITALS: BP 105/76; PULSE 115; RESP 18; TEMP 36.6; O2SAT 99
--- NOTE | 2023-09-14 19:57 | W.ED.RECABL ---
HPI - Recheck/Abnormal Lab/Rx General: Chief Complaint: Recheck/Abnormal Lab/Rx Stated Complaint: PCP wants tetnus and hemoglobin rabies Time Seen by Provider: 09/14/23 19:41 Source: patient Mode of arrival: ambulatory Limitations: no limitations History of Present Illness: 27-year-old female who was bit by a dog 3 days ago bit on the right elbow she given the rabies vaccine then she had refused the immunoglobulin she is here wanting immunoglobulin at this time. States she also need a tetanus and she wants the day 3 rabies vaccine. She has no new complaints here. Review of Systems Const: Denies: fever(s) or chills ENMT: Denies: throat pain or dental pain Card: Denies: chest pain Resp: Denies: dyspnea GI: Denies: abdominal pain, nausea, vomiting or diarrhea Musc: Denies: neck pain or back pain Skin/Breast: Denies: rash Neuro: Denies: headache(s) PFSH ED PFSH: Medical History History of marijuana use Surgical History History of tonsillectomy History of Family History Brother Lung disease Asthma Seizure disorder Social History Smoking and tobacco/nicotine status: current every day tobacco/nicotine user Second hand smoke exposure: No Alcohol intake: never Substance/Drug Use: former Date of last use: Had multiple positive marijuana test during Adopted: No Caregiver/support person: No Lives independently: Yes Household members: spouse Housing: House Marital status: Number of children: 4 Highest education level completed: 11th Grade service: No Current occupational status: employed Female Reproductive History: Date of last menstrual period: 08/24/23 Physical Exam Const: COMMON NORMALS: no acute distress, patient oriented x3 and healthy appearing HENMT: COMMON NORMALS: normocephalic and atraumatic HEAD & SCALP: normocephalic and atraumatic Neck/C-Spine: COMMON NORMALS: full ROM Chest: COMMONS NORMALS: normal inspection of the chest Resp: COMMON NORMALS: normal respiratory effort Extremity: COMMON NORMALS: full ROM Neuro: COMMON NORMALS: patient oriented x3, moves all extremities and no focal motor deficits Psych: COMMON NORMALS: mental status grossly normal, Normal thought process present and cooperative THOUGHT PROCESS: Normal thought process present Skin: NARRATIVE SKIN EXAM: Dog bite to right elbow wounds clean dry intact with sutures in place no signs of cellulitis Course Vital Signs: Vital signs: Vital Signs Temperature 97.8 F 09/14/23 19:43 Pulse Rate 115 H 09/14/23 19:43 Respiratory Rate 18 09/14/23 19:43 Blood Pressure 105/76 09/14/23 19:43 Pulse Oximetry 99 09/14/23 19:43 Oxygen Delivery Me thod Room Air 09/14/23 19:43 MDM - Recheck/Abnormal Lab/Rx Medical Decision Making Patient presents here with needing rabies vaccine and immunoglobulin and tetanus we will get those to her here her wounds well-appearing she is stable for discharge follow-up with PCP. Medical Records I reviewed the patient's medical records. No radiology studies performed this visit Discharge Plan Discharge Patient Disposition: Home Clinical Impression: Dog bite, Rabies Condition: Stable Prescriptions: No Action chlorhexidine gluconate [Peridex] 0.12 % mouthwash 15 ml buccal BID Qty: 473 2RF cetirizine [Wal-Zyr (cetirizine)] 10 mg tablet 10 mg PO DAILY Qty: 30 5RF famotidine [Pepcid] 20 mg tablet 20 mg PO DAILY Qty: 30 5RF cyclobenzaprine 10 mg tablet 10 mg PO .at bedtime Qty: 30 5RF duloxetine [Cymbalta] 20 mg capsule,delayed release(DR/EC) 20 mg PO BID Qty: 60 0RF albuterol sulfate [Ventolin HFA] 90 mcg/actuation HFA aerosol inhaler 2 puff inhalation Q6H PRN (Reason: shortness of breath or wheezing) Qty: 8.5 0RF mupirocin 2 % ointment 1 applic topical BID Qty: 22 0RF hydrocodone-acetaminophen 5-325 mg tablet 1 tab PO Q6H PRN (Reason: pain) Qty: 20 0RF Miralax 17 gram/dose powder 17 g PO DAILY Qty: 510 0RF Rx Instructions: Take 1 scoop daily while taking pain medications. amoxicillin-pot clavulanate 875-125 mg tablet 1 tab PO BID 10 Days Qty: 20 0RF Discharge Orders: Discharge ED (Routine); Ordered 09/14/23 Ordered By: Uzma Escalante Referrals: Tyson Henry, FIREWALL SECURITY ENGINEER-C [Primary Care Provider] - 1-3 days Discharge Diet: Advance as tolerated Discharge Activity: Resume usual activity Patient Instructions: Animal Bite (ED) Coding Level of Care Code ED Associate Programmer for Genny Whiting
[2023-09-14] MEDS: rabies vaccine 2.5 unit SDV IM (20:10)
[2023-09-14] MEDS: tetanus-dipt-pertussis 0.5 mL SDV IM (20:20)
[2023-09-14] MEDS: rabies IG 300 unit/mL SDV 1 mL 1110 UNIT IM (20:23)
== END 2023-09-14 20:51 | disposition home or self-care (01) ==
PROVIDERS: Emergency Provider Emergency Medicine; PCP Nurse Practitioner
DX: Z29.14 Encounter for prophylactic rabies immune globulin (principal); W54.0XXA Bitten by dog, initial encounter; Z72.0 Tobacco use; Z23 Encounter for immunization; Z20.3 Contact with and (suspected) exposure to rabies
CPT/HCPCS: 90375; 90675; 90715; 96372; 99283

== ENCOUNTER 2023-09-19 21:43 | Emergency (ER) | payer MEDICAID, SELFPAY ==
[2023-09-19 21:46] VITALS: BP 111/69; PULSE 110; RESP 18; TEMP 36.7; O2SAT 94
--- NOTE | 2023-09-19 22:34 | ED_ITS ---
Documented by User: YAMILA Toney 09/19/23 22:37 HPI - Recheck/Abnormal Lab/Rx General: Chief Complaint: Recheck/Abnormal Lab/Rx Stated Complaint: rabies shot stitches out Time Seen by Provider: 09/19/23 22:25 Source: patient Mode of arrival: ambulatory Limitations: no limitations History of Present Illness: Patient is a 27-year-old female presenting to the emergency department for suture removal and third dose and rabies vaccination series. She has no new complaints at this time. No fevers, signs of infection, or other symptoms. States she called infusion center but got no call back, so she came to the ED for her third shot. Initial visit for: laceration and animal bite Returns today for: staple/stitch removal and rabies shot Symptoms since prior visit: no new symptoms Context: planned re-check Associated symptoms: none Review of Systems General: Reports: 10 or more systems reviewed and unremarkable except in HPI and below Const: Reports: other (Present for rabies vaccination and suture removal); Denies: fever(s), chills or fatigue Eyes: Denies: change in vision ENMT: Denies: throat pain, ear or mastoid pain or nasal discharge Card: Denies: chest pain, palpitations, swelling of feet/ankles or light headedness Resp: Denies: dyspnea, productive cough or wheezing GI: Denies: abdominal pain, nausea, vomiting, diarrhea or constipation : Denies: flank pain, difficulty voiding, dysuria or urinary frequency Musc: Denies: neck pain, back pain or joint pain Skin/Breast: Denies: rash Neuro: Denies: headache(s), numbness in extremities or weakness in extremities [facility] ED PFSH: Medical History History of marijuana use Surgical History History of tonsillectomy History of Family History Brother Lung disease Asthma Seizure disorder Social History Smoking and tobacco/nicotine status: current every day tobacco/nicotine user Second hand smoke exposure: No Alcohol intake: never Substance/Drug Use: former Date of last use: Had multiple positive marijuana test during Adopted: No Caregiver/support person: No Lives independently: Yes Household members: spouse Housing: House Marital status: Number of children: 4 Highest education level completed: 11th Grade service: No Current occupational status: employed Female Reproductive History: Date of last menstrual period: 08/29/23 Physical Exam Const: COMMON NORMALS: no acute distress, patient oriented x3 and no limitations GENERAL APPEARANCE: cooperative, comfortable and well developed ORIENTATION/CONSCIOUSNESS: Yes awake, Yes oriented to person, Yes oriented to place and Yes oriented to time HENMT: COMMON NORMALS: normocephalic, atraumatic and hearing grossly normal bilaterally HEAD & SCALP: normocephalic and atraumatic Eye: COMMON NORMALS: Equal, round and reactive pupils present, EOMs intact bilaterally and conjunctivae normal CONJUNCTIVA: Yes conjunctivae normal PUPIL: Yes Equal, round and reactive pupils present Neck/C-Spine: COMMON NORMALS: full ROM, supple and no JVD Resp: COMMON NORMALS: normal respiratory effort, No retractions, No use of accessory muscles and clear to auscultation bilaterally AUSCULTATION: clear to auscultation bilaterally Cardio: COMMON NORMALS: no JVD, regular rate, regular rhythm, No clicks present (Cardio), No murmurs present (Cardio) and No rub (Cardio) RATE: regular rate RHYTHM: regular rhythm GI: COMMON NORMALS: Normal to inspection, nondistended, normoactive bowel soun ds present, Soft to palpation and non-tender AUSCULTATION: Yes normoactive bowel sounds PALPATION: Yes Soft to palpation RECTAL EXAM: deferred Extremity: COMMON NORMALS: normal to inspection, full ROM and capillary refill normal Neuro: COMMON NORMALS: patient oriented x3, moves all extremities, no focal motor deficits and no sensory deficits noted SENSORIUM/ORIENTATION: Yes oriented to person, Yes oriented to place and Yes oriented to time Psych: COMMON NORMALS: mental status grossly normal and Normal thought process present THOUGHT PROCESS: Normal thought process present Skin: NARRATIVE SKIN EXAM: Well-healing lacerations noted to right elbow, sutures ready for removal. Course Vital Signs: Vital signs: Vital Signs Temperature 98.1 F 09/19/23 21:46 Pulse Rate 110 H 09/19/23 21:46 Respiratory Rate 18 09/19/23 21:46 Blood Pressure 111/69 09/19/23 21:46 Pulse Oximetry 94 09/19/23 21:46 Oxygen Delivery Me thod Room Air 09/19/23 21:46 MDM - Recheck/Abnormal Lab/Rx Medical Decision Making Patient presented for suture removal and third vaccination and rabies series. She has no complaints. Vitals normal. Exam did show that the wounds to her right elbow were well-healing and sutures were ready to come out. Vaccine given and she is informed to return in a week for her fourth dose. All other questions and concerns addressed at this time. No radiology studies performed this visit Discharge Plan Discharge Patient Disposition: Home Clinical Impression: Need for rabies vaccination, Encounter for removal of sutures Condition: Stable Prescriptions: No Action chlorhexidine gluconate [Peridex] 0.12 % mouthwash 15 ml buccal BID Qty: 473 2RF cetirizine [Wal-Zyr (cetirizine)] 10 mg tablet 10 mg PO DAILY Qty: 30 5RF famotidine [Pepcid] 20 mg tablet 20 mg PO DAILY Qty: 30 5RF cyclobenzaprine 10 mg tablet 10 mg PO .at bedtime Qty: 30 5RF duloxetine [Cymbalta] 20 mg capsule,delayed release(DR/EC) 20 mg PO BID Qty: 60 0RF albuterol sulfate [Ventolin HFA] 90 mcg/actuation HFA aerosol inhaler 2 puff inhalation Q6H PRN (Reason: shortness of breath or wheezing) Qty: 8.5 0RF mupirocin 2 % ointment 1 applic topical BID Qty: 22 0RF hydrocodone-acetaminophen 5-325 mg tablet 1 tab PO Q6H PRN (Reason: pain) Qty: 20 0RF Miralax 17 gram/dose powder 17 g PO DAILY Qty: 510 0RF Rx Instructions: Take 1 scoop daily while taking pain medications. amoxicillin-pot clavulanate 875-125 mg tablet 1 tab PO BID 10 Days Qty: 20 0RF Discharge Orders: Discharge ED (Routine); Ordered 09/19/23 Ordered By: Matt Bennett Referrals: Tyson Henry, BIOMEDICAL ENGINEERING DIRECTOR-C [Primary Care Provider] - Discharge Diet: Usual diet Discharge Activity: Resume usual activity Patient Instructions: Rabies (ED) Activity Restrictions/Additional Instructions: Follow-up as scheduled for last rabies vaccination. Return with any new or concerning symptoms you may have. Coding Level of Care Code ED Policeman for Chg Fwd Documented by User: Sergey Oconnor DO 09/20/23 07:40 HPI - Recheck/Abnormal Lab/Rx General: Chief Complaint: Recheck/Abnormal Lab/Rx Stated Complaint: rabies shot stitches out Time Seen by Provider: 09/19/23 22:25 PFSH ED PFSH: Medical History History of marijuana use Surgical History History of tonsillectomy History of Family History Brother Lung disease Asthma Seizure disorder Social History Smoking and tobacco/nicotine status: current every day tobacco/nicotine user Second hand smoke exposure: No Alcohol intake: never Substance/Drug Use: former Date of last use: Had multiple positive marijuana test during Adopted: No Caregiver/support person: No Lives independently: Yes Household members: spouse Housing: House Marital status: Number of children: 4 Highest education level completed: 11th Grade service: No Current occupational status: employed Course Vital Signs: Vital signs: Vital Signs Temperature 98.1 F 09/19/23 21:46 Pulse Rate 110 H 09/19/23 21:46 Respiratory Rate 18 09/19/23 21:46 Blood Pressure 111/69 09/19/23 21:46 Pulse Oximetry 94 09/19/23 21:46 Oxygen Delivery Me thod Room Air 09/19/23 21:46 MDM - Recheck/Abnormal Lab/Rx Medical Decision Making Patient presented for suture removal and third vaccination and rabies series. She has no complaints. Vitals normal. Exam did show that the wounds to her right elbow were well-healing and sutures were ready to come out. Vaccine given and she is informed to return in a week for her fourth dose. All other questions and concerns addressed at this time. Chart reviewed Discharge Plan Discharge Patient Disposition: Home Clinical Impression: Need for rabies vaccination, Encounter for removal of sutures Condition: Stable Prescriptions: No Action chlorhexidine gluconate [Peridex] 0.12 % mouthwash 15 ml buccal BID Qty: 473 2RF cetirizine [Wal-Zyr (cetirizine)] 10 mg tablet 10 mg PO DAILY Qty: 30 5RF famotidine [Pepcid] 20 mg tablet 20 mg PO DAILY Qty: 30 5RF cyclobenzaprine 10 mg tablet 10 mg PO .at bedtime Qty: 30 5RF duloxetine [Cymbalta] 20 mg capsule,delayed release(DR/EC) 20 mg PO BID Qty: 60 0RF albuterol sulfate [Ventolin HFA] 90 mcg/actuation HFA aerosol inhaler 2 puff inhalation Q6H PRN (Reason: shortness of breath or wheezing) Qty: 8.5 0RF mupirocin 2 % ointment 1 applic topical BID Qty: 22 0RF hydrocodone-acetaminophen 5-325 mg tablet 1 tab PO Q6H PRN (Reason: pain) Qty: 20 0RF Miralax 17 gram/dose powder 17 g PO DAILY Qty: 510 0RF Rx Instructions: Take 1 scoop daily while taking pain medications. amoxicillin-pot clavulanate 875-125 mg tablet 1 tab PO BID 10 Days Qty: 20 0RF Discharge Orders: Discharge ED (Routine); Ordered 09/19/23 Ordered By: Matt Bennett Referrals: Tyson Henry, BIOMEDICAL ENGINEERING DIRECTOR-C [Primary Care Provider] - Discharge Diet: Usual diet Discharge Activity: Resume usual activity Patient Instructions: Rabies (ED) Activity Restrictions/Additional Instructions: Follow-up as scheduled for last rabies vaccination. Return with any new or concerning symptoms you may have. Coding Level of Care Code ED Policeman for Genny Whiting
[2023-09-19] MEDS: rabies vaccine 2.5 unit SDV IM (23:01)
== END 2023-09-19 23:07 | disposition home or self-care (01) ==
PROVIDERS: Emergency Provider Physician Assistant; PCP Nurse Practitioner
DX: Z29.14 Encounter for prophylactic rabies immune globulin (principal); Z20.3 Contact with and (suspected) exposure to rabies; Z23 Encounter for immunization; Z72.0 Tobacco use
CPT/HCPCS: 90471; 90675; 99283

== ENCOUNTER 2024-06-21 15:52 | Outpatient (CLI) | payer BC, MEDICAID, SELFPAY ==
--- NOTE | 2024-06-21 15:58 | US_ITS ---
WS: [id number] ULTRASOUND SOFT TISSUES cervical chains, bilateral. HISTORY: LYMPHADENOPATHY COMPARISON: None available. TECHNIQUE: 2-D and color Doppler imaging is submitted. Ultrasound is performed of the cervical chains. No suspicious masses are identified. No cystic mass. Normal bilateral cervical chain lymph nodes are superficial. These are normal size lymph nodes with a normal fatty hilum and normal cortex. US/US soft tissue head neck [id number] IMPRESSION: Normal bilateral cervical chain lymph nodes.
== END 2024-06-21 15:53 | disposition home or self-care (01) ==
LOC: RAD 15:52
PROVIDERS: PCP Nurse Practitioner; Visit Provider Registered Nurse
DX: R59.1 Generalized enlarged lymph nodes (principal); R93.89 Abnormal findings on diagnostic imaging of other specified body structures
CPT/HCPCS: 76536

== ENCOUNTER → 2024-08-29 14:30 | Outpatient (BNVA) | payer BC, MEDICAID, SELFPAY | PROVIDERS: PCP Nurse Practitioner; Visit Provider Nurse Practitioner Women's Health | DX: O20.0 Threatened abortion (principal); N91.2 Amenorrhea, unspecified | CPT/HCPCS: 81025; 84443; 84702; 85025; 86850; 86900; 87077; 87086; 87184 ==

== ENCOUNTER 2024-08-30 13:59 | Emergency (ER) | payer BC, MEDICAID, SELFPAY ==
[2024-08-30 14:03] VITALS: BP 127/82; PULSE 69; TEMP 36.4; O2SAT 100; BMI 22.3
[2024-08-30 14:57] LABS: Basophils % 0.3 %; Eosinophils % 0.3 %; Hematocrit 47.5 % (36-47); Lymphocytes # 1.1 10^3/uL (0.8-4.8); Lymphocytes % 16.4 %; Mean Corpuscular HGB Conc 34.9 g/dL (30-55); Mean Corpuscular Hemoglobin 30.3 pg (27-33); Mean Corpuscular Volume 86.7 fl (85-98); Mean Platelet Volume 10.2 fL (7.4-10.4); Monocytes # 0.2 10^3/uL (0.2-0.9); Monocytes % 3.2 %; Neutrophils # 5.42 10^3/uL (1.8-7.7); Neutrophils % 79.4 %; Nucleated Red Blood Cells % 0 %; Platelet Count 244 10^3/cmm (157-399); Red Blood Count 5.48 10^6/uL (3.85-5.65); Red Cell Distribution Width 11.8 % (12.1-15.1); White Blood Count 6.83 10^3/uL (3.29-11.43)
--- NOTE | 2024-08-30 15:09 | W.ED.FEMALGU ---
HPI - Female Genitourinary General: Chief complaint: Vaginal Bleeding Stated complaint: 6 wks preg/vomitting Time Seen by Provider: 08/30/24 14:50 Source: patient Mode of arrival: ambulatory Limitations: no limitations History of Present Illness: Patient is a 28-year-old female () who presents today with complaint of nausea and vomiting for the past ~20 hours. Patient notes a sudden onset last night and has been unable to keep any food or water down. She states that she has not taken anything for her nausea as she does not have any medications at home. She denies any abdominal pain. Patient has also been having vaginal bleeding for the past 4 days. She notes that the past 3 days the bleeding has only been when she uses the restroom, however today this has increased to more consistent spotting. Patient reports that she is 6 weeks today. She notes that yesterday she had a visit with women's health who confirmed in office. Scheduled her for dating ultrasound in 2 weeks. She states her significant other also having symptoms of N/V/D. elicited complaint: vaginal bleeding Onset (ago): day(s) Vaginal bleeding: scant Associated symptoms: Reports no associated symptoms and nausea; Deny abdominal pain or headache(s) Patient : Yes Related Data Home Medications ?Medication ?Instructions ?Recorded ?Confirmed epinephrine 0.3 mg/0.3 mL See Rx Instructions .Route .COMPLEX 08/30/24 08/30/24 injection, auto-injector hydroxyzine HCl 10 mg tablet 10 mg PO TID 08/30/24 08/30/24 paroxetine HCl 10 mg tablet 10 mg PO DAILY 08/30/24 08/30/24 tizanidine 2 mg tablet 2 mg PO Q6H 08/30/24 08/30/24 Previous Rx's ?Medication ?Instructions ?Recorded ondansetron 4 mg disintegrating 4 mg PO Q8H PRN nausea and 08/30/24 tablet vomiting #14 tabs Allergies Allergy/AdvReac Type Severity Reaction Status Date / Time Alpha-Gal Allergy Severe ALGY-Hives Verified 08/30/24 14:10 (Twtacrmbh-Ytllm-1,3-Gala Milk Containing Products Allergy Severe ALGY-Hives Verified 08/30/24 14:10 (Dairy) egg whites Allergy Mild ADR-Nausea Uncoded 08/30/24 14:10 Review of Systems Const: Denies: fever(s), chills, body aches, fatigue or malaise Resp: Denies: dyspnea GI: Reports: nausea and vomiting; Denies: abdominal pain or diarrhea : Reports: vaginal bleeding; Denies: flank pain, difficulty voiding, dysuria, urinary frequency, urinary urgency, urinary hesitancy or pelvic pain Musc: Denies: back pain Skin/Breast: Denies: rash Neuro: Denies: headache(s) or dizziness PFSH ED PFSH: Medical History Anxiety and depression ita nunez managed with paxil History of marijuana use Surgical History History of tonsillectomy History of 2011-- FTP, NRFHR-- Primary 2016-- repeat 2018-- repeat 2021-- repeat Family History Brother Lung disease Asthma Seizure disorder Denies family history of Colon cancer Ovarian cancer Prostate cancer Diabetes Heart disease Hyperlipidemia Hypertension Uterine cancer Thyroid disease Stroke Social History Smoking and tobacco/nicotine status: never used tobacco/nicotine Second hand smoke exposure: No Alcohol intake: never Substance/Drug Use: former Date of last use: Had multiple positive marijuana test during Adopted: No Caregiver/support person: No Lives independently: Yes Household members: spouse Housing: House Marital status: Number of children: 4 Highest education level completed: 11th Grade service: No Current occupational status: employed Physical Exam Const: COMMON NORMALS: average body habitus, patient oriented x3, no limitations, healthy appearing, alert and well nourished GENERAL APPEARANCE: cooperative and in distress (appears nauseous) Eye: COMMON NORMALS: no scleral icterus Resp: COMMON NORMALS: normal respiratory effort and clear to auscultation bilaterally AUSCULTATION: clear to auscultation bilaterally Cardio: COMMON NORMALS: regular rate and regular rhythm RATE: regular rate RHYTHM: regular rhythm GI: COMMON NORMALS: Normal to inspection, nondistended, normoactive bowel sounds present, Soft to palpation, non-tender, No hepatosplenomegaly present and no masses PALPATION: Yes Soft to palpation and Yes No hepatosplenomegaly present : COMMON NORMALS: Yes no CVA tenderness BLADDER/KIDNEY EXAM: Yes no CVA tenderness Back/Pelvis: COMMON NORMALS: no CVA tenderness Extremity: GENERAL: Yes normal exam except as noted Neuro: COMMON NORMALS: patient oriented x3 SENSORIUM/ORIENTATION: Yes alert Skin: COMMON NORMALS: no rashes or lesions noted GENERAL SKIN EXAM: no rashes or lesions noted Course Vital Signs: Vital signs: Vital Signs Temperature 97.6 F 08/30/24 14:03 Pulse Rate 61 08/30/24 15:22 Respiratory Rate 14 08/30/24 15:22 Blood Pressure 131/91 08/30/24 15:22 Pulse Oximetry 100 08/30/24 15:22 Oxygen Delivery Me thod Room Air 08/30/24 15:22 MDM - Female Medical Decision Making Patient here complaining of nausea and vomiting. She states she is 6 weeks by LMP. confirmed by women's health clinic yesterday by hcg qualitative. They did do an hCG quant but patient unaware of these results. This came back yesterday at 9 which would be considerably low for a 6-week gestation. Today it is 5. This is consistent with a nonviable . At this time there is no indication for ultrasound imaging. Recommend she continue to follow-up with women's health. Blood type A positive. Suspect her nausea and vomiting is secondary to a gastroenteritis as her significant other has similar symptoms. Patient will be allowed discharge with return precautions. Medical Records I reviewed the patient's medical records. Lab Data I reviewed the patient's lab results. 08/30/24 14:41 08/30/24 14:41 Laboratory Results WBC 6.83 10^3/uL (3.29-11.43) 08/30/24 14:41 RBC 5.48 10^6/uL (3.85-5.65) 08/30/24 14:41 Hgb 16.60 g/dL (11.27-16.99) 08/30/24 14:41 Hct 47.5 % (36-47) H 08/30/24 14:41 MCV 86.7 fl (85-98) 08/30/24 14:41 MCH 30.3 pg (27-33) 08/30/24 14:41 MCHC 34.9 g/dL (30-55) 08/30/24 14:41 RDW 11.8 % (12.1-15.1) L 08/30/24 14:41 Plt Count 244 10^3/cmm (157-399) 08/30/24 14:41 MPV 10.2 fL (7.4-10.4) 08/30/24 14:41 Neut % (Auto) 79.4 % 08/30/24 14:41 Lymph % (Auto) 16.4 % 08/30/24 14:41 [place] % (Auto) 3.2 % 08/30/24 14:41 Eos % (Auto) 0.3 % 08/30/24 14:41 Baso % (Auto) 0.3 % 08/30/24 14:41 Neut # (Auto) 5.42 10^3/uL (1.8-7.7) 08/30/24 14:41 Lymph # (Auto) 1.1 10^3/uL (0.8-4.8) 08/30/24 14:41 [place] # (Auto) 0.2 10^3/uL (0.2-0.9) 08/30/24 14:41 Eos # (Auto) 0.0 10^3/uL (0.0-0.8) 08/30/24 14:41 Baso # (Auto) 0.0 10^3/uL (0.0-0.1) 08/30/24 14:41 Nucleated RBC % (auto) 0 % 08/30/24 14:41 Nucleated RBCs # 0.0 /100WBC 08/30/24 14:41 Sodium 138 mmol/L (136-145) 08/30/24 14:41 Potassium 3.7 mmol/L (3.5-5.1) 08/30/24 14:41 Chloride 99 mmol/L (98-107) 08/30/24 14:41 Carbon Dioxide 25 mmol/L (22-29) 08/30/24 14:41 Anion Gap 17.7 (5-19) 08/30/24 14:41 BUN 17 mg/dL (6-20) 08/30/24 14:41 Creatinine 0.6 mg/dL (0.5-0.9) 08/30/24 14:41 GFR Calculation 117.4 mL/min (90-130) 08/30/24 14:41 Glucose 107 mg/dL (65-115) 08/30/24 14:41 Calculated Osmolality 288 mOsm/kg (285-295) 08/30/24 14:41 Calcium 10.2 mg/dL (8.5-10.5) 08/30/24 14:41 Total Bilirubin 0.5 mg/dL (0.15-1.2) 08/30/24 14:41 AST 13 U/L (0-32) 08/30/24 14:41 ALT 7 U/L (0-33) 08/30/24 14:41 Alkaline Phosphatase 84 U/L (35-105) 08/30/24 14:41 Total Protein 9.0 g/dL (6.6-8.7) H 08/30/24 14:41 Albumin 5.4 g/dL (3.5-5.2) H 08/30/24 14:41 Globulin 3.6 g/dL (1.3-4.6) 08/30/24 14:41 Ser , Semi-Qnt 5.56 mIU/mL 08/30/24 14:41 Blood Type A Positive 08/30/24 14:54 Rho(D) Type Rh positive 08/30/24 14:54 No radiology studies performed this visit Discharge Plan Discharge Patient Disposition: Home Clinical Impression: Gastroenteritis, Non-viable Condition: Stable Prescriptions: New ondansetron 4 mg tablet,disintegrating 4 mg PO Q8H PRN (Reason: nausea and vomiting) Qty: 14 0RF No Action paroxetine HCl 10 mg tablet 10 mg PO DAILY tizanidine 2 mg tablet 2 mg PO Q6H epinephrine 0.3 mg/0.3 mL auto-injector See Rx Instructions .ROUTE .COMPLEX Rx Instructions: INJECT CONTENTS OF 1 PEN INTRAMUSCULARLY NEEDED FOR ALLERGIC REACTION , FOR EMERGENCY USE ONLY, MAY REPEAT AFTER 5-10 MINUTES, AFTER USE CALL EMS OR GO TO EMERGENCY ROOM hydroxyzine HCl 10 mg tablet 10 mg PO TID Discharge Orders: Discharge ED (Routine); Ordered 08/30/24 Ordered By: Felicia Aguirre Referrals: Tyson Henry, SENIOR RE[facility]ITER[facility] [Primary Care Provider] - Activity Restrictions/Additional Instructions: As we discussed, your hCG at yesterday's women's health visit with 9. Today it is 5. This most likely is consistent with a nonviable . Please continue to follow-up with the women's health clinic. I suspect her nausea and vomiting today is most likely due to a stomach bug or gastroenteritis and this should be self-limiting (meaning it goes away on its own). You may use the nausea meds prescribed as needed. Print Language: Upper Sorbian Coding Level of Care Code ED Fire Manager for Genny Whiting
[2024-08-30 15:17] LABS: HCG Quantitative 5.56 mIU/mL
[2024-08-30] MEDS: sodium chloride 0.9% 1,000 ML 999 ML IV (15:17)
[2024-08-30] MEDS: metoclopramide 5 mg/mL SDV 2 mL 10 MG IVP (15:18)
[2024-08-30] MEDS: diphenhydrAMINE 50 mg/mL SDV 1mL 25 MG IVP (15:21)
[2024-08-30 15:22] VITALS: BP 131/91; PULSE 61; RESP 14; O2SAT 100
[2024-08-30 15:28] LABS: Alanine Aminotransferase 7 U/L (0-33); Albumin Level 5.4 g/dL (3.5-5.2); Alkaline Phosphatase 84 U/L (35-105); Anion Gap 17.7 (5-19); Aspartate Amino Transferase 13 U/L (0-32); Blood Urea Nitrogen 17 mg/dL (6-20); Calcium 10.2 mg/dL (8.5-10.5); Carbon Dioxide 25 mmol/L (22-29); Chloride 99 mmol/L (98-107); Creatinine Clr Calc Pharmacy 112.9688; Globulin 3.6 g/dL (1.3-4.6); Glomerular Filtration Rate 117.4 mL/min (90-130); Glucose 107 mg/dL (65-115); Osmolality Calculated 288 mOsm/kg (285-295); Potassium 3.7 mmol/L (3.5-5.1); Sodium 138 mmol/L (136-145); Total Bilirubin 0.5 mg/dL (0.15-1.2)
[2024-08-30 16:43] VITALS: BP 128/79; PULSE 65; O2SAT 100
== END 2024-08-30 16:45 | disposition home or self-care (01) ==
PROVIDERS: Emergency Provider Physician Assistant; PCP Nurse Practitioner
DX: O36.80X0 Pregnancy with inconclusive fetal viability, not applicable or unspecified (principal); K52.9 Noninfective gastroenteritis and colitis, unspecified
CPT/HCPCS: 36415; 80053; 84702; 85025; 86900; 96361; 96374; 96375; 99284; J1200; J2765; J7030